=== PATIENT | female | born 1955 | race Caucasian/White ===

== ENCOUNTER 2023-09-09 20:32 | Emergency (ER) | payer OTHER ==
[~2023-09-09] VITALS: Ht 152.4 cm; Wt 65.8 kg
[2023-09-09 22:27] VITALS: BP 150/75; TEMP 98.6; O2SAT 97
== END 2023-09-09 22:24 | disposition home or self-care (01) ==
LOC: ER 20:37
DX: I10 Essential (primary) hypertension (principal); R56.9 Unspecified convulsions

== ENCOUNTER 2024-09-25 10:00 | Inpatient (IN) | payer OTHER ==
[~2024-09-25] VITALS: Ht 157.5 cm; Wt 63.0 kg
[2024-09-25] MEDS ORDERED: diphenhydrAMINE HCL 50 MG/ML VIAL ONE (10:28)
[2024-09-25] MEDS ORDERED: MECLIZINE HCL 25 MG TABLET ONE (10:29)
[2024-09-25 10:31] LABS: BASOPHILS % (AUTO) 0.5 % (0.0-2.0); EOSINOPHILS # (AUTO) 0.2 K/uL (0.0-0.7); EOSINOPHILS % (AUTO) 2.2 % (0.0-6.0); HEMATOCRIT 34 % (33-45); HEMOGLOBIN 11.7 g/dL (11.5-14.8); LYMPHOCYTES # (AUTO) 1.6 K/uL (0.8-4.8); LYMPHOCYTES % (AUTO) 21.3 % (20.0-44.0); MEAN CORPUSCULAR HEMOGLOBIN 29 PG (26.0-33.0); MEAN CORPUSCULAR HGB CONC 34 g/dl (31.0-36.0); MEAN CORPUSCULAR VOLUME 85 fL (82-100); MONOCYTES # (AUTO) 0.6 K/uL (0.1-1.30); MONOCYTES % (AUTO) 7.5 % (2.0-12.0); NEUTROPHILS # (AUTO) 5.1 K/uL (1.8-8.9); NEUTROPHILS % (AUTO) 68.5 % (43.0-81.0); PLATELET COUNT (AUTO) 286 K/uL (150-450); RED BLOOD CELL COUNT(AUTO) 4.03 MIL/uL (4.0-5.2); WHITE BLOOD COUNT (AUTO) 7.4 K/uL (4.3-11.0)
[2024-09-25 10:37] LABS: APPEARANCE,URINE CLEAR (CLEAR); BILIRUBIN,URINE Negative (NEGATIVE); BLOOD, URINE Trace-intact Ery/uL (NEGATIVE); COLOR,URINE YELLOW (YELLOW); KETONES,URINE Negative (NEGATIVE); LEUKOCYTE ESTERASE ,URINE Trace (NEGATIVE); PROTEIN,URINE Negative (NEGATIVE); UGLUCOSE Negative (NEGATIVE); UROBILINOGEN,URINE 0.2 EU/dL (0.2)
[2024-09-25 10:38] LABS: NITRITE, URINE NEGATIVE (NEGATIVE)
[2024-09-25 10:41] LABS: INR 0.98 (0.91-1.10); PROTHROMBIN TIME 10.1 SECS (9.2-11.1)
[2024-09-25 10:42] LABS: ADD URINE CULTURE NO; BACTERIA,URINE Rare /HPF (None Seen); SQUAMOUS EPITHELIAL CELL,UR Moderate /HPF (None Seen)
[2024-09-25 10:47] LABS: CALCIUM, SERUM 9.7 mg/dL (8.5-10.1); CARBON DIOXIDE 25 mmol/L (21-32); CHLORIDE 104 mmol/L (98-107); CREATININE 0.8 mg/dL (0.6-1.3); GLUCOSE 120 mg/dL (74-106); POTASSIUM 3.1 mmol/L (3.5-5.1); SODIUM SERUM 140 mmol/L (136-145); UREA NITROGEN, BLOOD 5 mg/dL (7-18)
[2024-09-25] MEDS: MECLIZINE HCL 12.5 MG TABLET PO ONE (10:47)
[2024-09-25] MEDS: diphenhydrAMINE HCL 50 MG/ML VIAL IV ONE (10:47)
[2024-09-25 10:54] LABS: ALANINE AMINOTRANSFERASE 21 U/L (12-78); ALBUMIN 3.6 g/dL (3.4-5.0); ALKALINE PHOSPHATASE 105 U/L (46-116); ASPARTATE AMINOTRANSFERASE 22 U/L (15-37); BILIRUBIN,DIRECT 0.1 mg/dL (0.0-0.2); BILIRUBIN,TOTAL 0.7 mg/dL (0.2-1.0); TOTAL PROTEIN, SERUM 7.4 g/dL (6.4-8.2)
[2024-09-25 11:00] LABS: ERYTHROCYTE SEDIMENTATION RATE 53 MM/HR (0-30)
[2024-09-25 11:44] VITALS: O2SAT 95
[2024-09-25] MEDS ORDERED: NIFE30TA91 PO (12:28)
[2024-09-25] MEDS ORDERED: CARV25TA2 PO (12:28)
[2024-09-25] MEDS ORDERED: LACO200T2 PO (12:28)
[2024-09-25] MEDS ORDERED: LAMO200T10 PO (12:28)
[2024-09-25] MEDS ORDERED: ACETAMINOPHEN 325 MG TABLET PO PRN (14:00)
[2024-09-25] MEDS ORDERED: MAGNESIUM HYDROXIDE 30 ML UDC PO PRN (14:00)
[2024-09-25] MEDS ORDERED: Z GUARD REMEDY 4 OZ OINT TP PRN (14:00)
[2024-09-25] MEDS ORDERED: MECLIZINE HCL 12.5 MG TABLET PO PRN (14:00)
[2024-09-25] MEDS ORDERED: ONDANSETRON HCL/PF 4 MG/2 ML VIAL IVP PRN (14:00)
[2024-09-25] MEDS: POTASSIUM CHLORIDE 20 MEQ TAB.PRT.SR PO ONE (14:31)
[2024-09-25] MEDS: ENOXAPARIN SODIUM 40 MG/0.4 ML DISP.SYRIN SQ SCH (14:32)
[2024-09-25] MEDS: IV LR 1000 ML 1,000 ML IV PRN (14:49)
[2024-09-25] MEDS ORDERED: MECLIZINE HCL 25 MG TABLET PO PRN (15:00)
[2024-09-25 16:00] VITALS: BP 122/50; TEMP 98.1; O2SAT 96
[2024-09-25 16:21] VITALS: BP_SYST 119; BP_SYST 122; BP_SYST 133; BP_DIAS 66; BP_DIAS 71; BP_DIAS 81
[2024-09-25 20:00] VITALS: BP 126/62; TEMP 97.9; O2SAT 98
[2024-09-25] MEDS: LACOSAMIDE 50 MG TABLET PO SCH (21:43)
[2024-09-25] MEDS: CARVEDILOL 12.5 MG TABLET PO SCH (21:44)
[2024-09-25] MEDS: NIFEdipine XL (30MG) 30 MG TAB PO SCH (21:44)
[2024-09-25] MEDS: LamoTRIgine 100 MG TABLET PO SCH (21:44)
[2024-09-26] VITALS: BP_SYST 100; BP_SYST 101; BP_DIAS 46; BP_DIAS 50; BP_DIAS 75; TEMP 97.5; O2SAT 96
[2024-09-26 04:00] VITALS: BP 106/50; TEMP 97.5; O2SAT 95
[2024-09-26 06:29] LABS: BASOPHILS % (AUTO) 0.7 % (0.0-2.0); EOSINOPHILS # (AUTO) 0.2 K/uL (0.0-0.7); EOSINOPHILS % (AUTO) 3.2 % (0.0-6.0); HEMATOCRIT 28 % (33-45); HEMOGLOBIN 9.8 g/dL (11.5-14.8); LYMPHOCYTES % (AUTO) 40.8 % (20.0-44.0); MEAN CORPUSCULAR HEMOGLOBIN 30 PG (26.0-33.0); MEAN CORPUSCULAR HGB CONC 35 g/dl (31.0-36.0); MEAN CORPUSCULAR VOLUME 85 fL (82-100); MONOCYTES # (AUTO) 0.4 K/uL (0.1-1.30); MONOCYTES % (AUTO) 9.2 % (2.0-12.0); NEUTROPHILS # (AUTO) 2.2 K/uL (1.8-8.9); NEUTROPHILS % (AUTO) 46.1 % (43.0-81.0); PLATELET COUNT (AUTO) 255 K/uL (150-450); RED BLOOD CELL COUNT(AUTO) 3.33 MIL/uL (4.0-5.2); RED CELL DISTRIBUTION WIDTH 13.1 % (11.5-15.0); WHITE BLOOD COUNT (AUTO) 4.8 K/uL (4.3-11.0)
[2024-09-26 06:41] LABS: THYROID STIMULATING HORMONE 4.21 uIU/mL (0.358-3.74)
[2024-09-26 06:54] LABS: CALCIUM, SERUM 8.8 mg/dL (8.5-10.1); CREATININE 0.6 mg/dL (0.6-1.3); MAGNESIUM 1.8 mg/dL (1.8-2.4); POTASSIUM 3.6 mmol/L (3.5-5.1)
[2024-09-26 08:00] VITALS: BP 118/64; TEMP 99.7; O2SAT 98
[2024-09-26] MEDS: PANTOPRAZOLE 40 MG TABLET.DR PO SCH (09:27)
[2024-09-26] MEDS ORDERED: INSULIN REGULAR, HUMAN 100 UNIT/ML 3 ML VIAL SQ PRN (11:30)
[2024-09-26] MEDS ORDERED: DEXTROSE 50%-WATER 50 ML DISP.SYRIN IV PRN (11:30)
[2024-09-26 12:00] VITALS: BP 123/79; TEMP 98.1; O2SAT 97
[2024-09-26] MEDS ORDERED: MECL-159 PO (12:06)
[2024-09-26] MEDS: BLOOD SUGAR DIAGNOSTIC 1 EACH STRIP IN SCH (12:25)
[2024-09-26 13:25] LABS: THYROID STIMULATING HORMONE 2.59 uIU/mL (0.358-3.74)
[2024-09-27 08:10] LABS: FOLIC ACID > 20.0 ng/mL (>3.0)
== END 2024-09-26 15:01 | disposition home health service (06) | DRG 149 ==
LOC: ER 10:02 → TELE 12:34 → MED 09-26 12:36
PROVIDERS: ADMIT Nurse Practitioner Family; ATTEND Nurse Practitioner Acute Care
DX: H81.13 Benign paroxysmal vertigo, bilateral (principal); E87.6 Hypokalemia; I10 Essential (primary) hypertension; G40.909 Epilepsy, unspecified, not intractable, without status epilepticus; F12.10 Cannabis abuse, uncomplicated; R53.1 Weakness; R62.7 Adult failure to thrive; Z68.25 Body mass index [BMI] 25.0-25.9, adult
CPT/HCPCS: 36415; 70450-TC; 71045-TC; 80048-TC; 80061-TC; 80076-TC; 81001; 82607-TC; 82962-TC; 83735-TC; 83921; 84100-TC; 84425; 84443-TC; 84484-TC; 85025-TC; 85652-TC; 85730-TC; 97110-TC; 97116-TC; 97530-TC; A4223; G0378; J1200; J1650; J1815; J7120; J8597